=== PATIENT | male | born 1960 | race Caucasian/White ===

== ENCOUNTER 2019-01-23 06:04 | Observation (INO) ==
--- NOTE | 2019-01-04 15:08 | PAT Medication Instructions ---
Medication Instructions Date of Service January 04, 2019 Home Medications atorvastatin 20 mg PO QPM gabapentin 1,200 mg PO BID lisinopril 40 mg PO QAM naltrexone-bupropion [Contrave] 2 tab PO BID naproxen sodium 660 mg PO BID PRN tamsulosin 0.4 mg PO BID ASK your surgeon for instructions naproxen sodium 660 mg PO BID PRN STOP taking 24 hours before surgery naltrexone-bupropion [Contrave] 2 tab PO BID (instructions per anesthesiologist, Dr. Galan) DO NOT take the morning of surgery lisinopril 40 mg PO QAM Take morning of surgery With a small sip of water, OTHERWISE NOTHING TO EAT OR DRINK AFTER MIDNIGHT: gabapentin 1,200 mg PO BID tamsulosin 0.4 mg PO BID Take evening before surgery atorvastatin 20 mg PO QPM gabapentin 1,200 mg PO BID tamsulosin 0.4 mg PO BID Other Notes If you have any questions please call us at [phone] or [phone] or [phone] or [phone]
--- NOTE | 2019-01-09 09:46 | Anesthesiology Consultation ---
Date of Service January 09, 2019 Assessment & Plan (1) Encounter for pre-operative examination: Chart Review Chart Review: Acceptable Risk for Surgery and Patient seen in Pre Admission Testing Teaching & Discussion Pre-Anesthesia Teaching/Discussion Notes: Instructed NPO after midnight before surgery,except medications with 15 cc of water. Medication instructions provided according to the PAT guidelines. History Surgery Operation Date: 01/23/19 12:25 Proposed Procedures p C6-C7 Anterior Cervical Discectomy and Fusion, Spinal Cord Monitoring - Kermit Jon DO Height/Weight Height: 6 ft Weight: 149.1 kg Allergies Allergy/AdvReac Type Severity Reaction Status Date / Time No Known Allergies Allergy Verified 01/02/19 11:35 Medications Home Medications Medication Instructions Recorded Confirmed Last Taken atorvastatin 20 mg PO QPM 01/02/19 01/02/19 Unknown gabapentin 1,200 mg PO BID 01/02/19 01/02/19 Unknown lisinopril 40 mg PO QAM 01/02/19 01/02/19 Unknown naltrexone-bupropion [Contrave] 2 tab PO BID 01/02/19 01/02/19 Unknown naproxen sodium 660 mg PO BID PRN 01/02/19 01/02/19 Unknown tamsulosin 0.4 mg PO BID 01/02/19 01/02/19 Unknown Past Medical History Medical History Arthritis BPH (benign prostatic hyperplasia) Hyperlipidemia Hypertension Morbid obesity on Contrave for weight loss Exercise / Class Metabolic Activity II 4-5 Yardwork/Stairs/Walk up hill (one flight of stairs (no chest pain/no SOB)) Past Family History Family History Mother Family history of diabetes mellitus Past Surgical History Surgical History History of appendectomy History of colonoscopy History of open reduction and internal fixation (ORIF) procedure LEFT LOWER LEG History of repair of rotator cuff RIGHT Past Anesthesia History No Hx of Anesthesia Complications and No Family Hx of Anesthesia Complications History of PONV No Hx of PONV and No Hx of Motion Sickness STOP BANG Total 5 Social History Smoking Status: Never smoker Do You Dip or Chew Tobacco: No (QUIT 2010) Hx Alcohol Use: Yes Alcohol type: beer alcohol intake frequency: a few times a month Hx Substance Use: No Review of Systems Patient denies chest pain, shortness of breath, dyspnea on exertion, cough, wheezing, palpitations. Physical Exam Vital Signs VITALS BP 109/76 P 63 TEMP 98.7 SP02 96%RA RESP 16 PHYSICAL Full neck and c-spine range of motion. Full TMJ range of motion. TMD 4 finger breaths Mallampati Score 2 Dentition: missing molars/left front side, Lungs: clear throughout to auscultation Cardiac: regular rate and rhythm, no murmurs noted Spine: normal Carotid arteries: negative bruit Extremities: no edema Trimmed marin Testing Laboratory Results 01/09/19 10:21 01/09/19 10:21 PT 10.3 Seconds (9.0-12.0) 01/09/19 10:21 INR 1.0 (0.9-1.1) 01/09/19 10:21 APTT 25.1 Seconds (21.0-31.0) 01/09/19 10:21 Urine Color Yellow 01/09/19 10:21 Urine Appearance Clear (Clear) 01/09/19 10:21 Urine pH 6.0 (4.5-7.5) 01/09/19 10:21 Ur Specific [place] 1.016 (1.000-1.030) 01/09/19 10:21 Urine Protein Negative (Negative) 01/09/19 10:21 Urine Glucose (UA) Negative (Negative) 01/09/19 10:21 Urine Ketones Negative (Negative) 01/09/19 10:21 Urine Nitrite Negative (Negative) 01/09/19 10:21 Ur Leukocyte Esterase Negative (Negative) 01/09/19 10:21 Blood Type O Positive 01/09/19 10:21 Antibody Screen NEGATIVE 01/09/19 10:21 Electrocardiogram Date: 01/09/19 Findings: + SB @ (53) Chest X-Ray Date: 01/09/19 There is no airspace consolidation or pleural effusion. A 12 mm nodular density projects over the right upper lobe. Although this could be artifactual, chest CT is recommended for further assessment and to exclude underlying pulmonary nodule (report being faxed to PCP for their reference)
[2019-01-09 11:00] LABS: Appearance Urine Clear (Clear); Bilirubin Urine Negative (Negative); Blood Urine Negative (Negative); Color Urine Yellow; Glucose Urine UA Negative (Negative); Ketones Urine Negative (Negative); Leukocyte Esterase Urine Negative (Negative); Nitrite Urine Negative (Negative); Protein Urine Negative (Negative); Specific Gravity Urine 1.016 (1.000-1.030); Urobilinogen Urine Negative (Negative)
[2019-01-09 11:01] LABS: Basophils # (auto) 0.07 K/uL (0-0.2); Basophils % (auto) 0.9 %; Eosinophils # (auto) 0.16 K/uL (0-0.5); Eosinophils % (auto) 2.2 %; Hematocrit (blood only) 42.3 % (42-52); Hemoglobin 13.5 g/dL (14.0-18.0); Immature Granulocytes # (auto) 0.03 K/uL (0.00-0.02); Immature Granulocytes % (auto) 0.4 %; Lymphocytes # (auto) 1.59 K/uL (1.2-3.4); Lymphocytes % (auto) 21.4 %; Mean Corpuscular Hemoglobin 28.8 pg (25-34); Mean Corpuscular Hgb Conc 31.9 g/dL (32-36); Mean Corpuscular Volume 90.4 fL (80-100); Mean Platelet Volume 10.4 fL (7.4-10.4); Monocytes # (auto) 0.58 K/uL (0.11-0.59); Monocytes % (auto) 7.8 %; Neutrophils # (auto) 5.01 K/uL (1.4-6.5); Neutrophils % (auto) 67.3 %; Platelet Count 251 K/uL (130-400); RDW Coefficient of Variation 13.6 % (11.5-14.5); RDW Standard Deviation 45.1 fL (36.4-46.3); Red Blood Count 4.68 M/uL (4.7-6.1); White Blood Count 7.44 K/uL (4.8-10.8)
[2019-01-09 11:09] LABS: Calcium 9.2 mg/dl (8.5-10.1); Creatinine Clr Calc Pharmacy 151.1 ml/min; Est GFR (African American) 114.6; Est GFR (Non-African American) 98.9; Potassium 4.5 mmol/L (3.5-5.1)
--- NOTE | 2019-01-09 11:09 | XRay Report ---
TWO VIEW CHEST CLINICAL HISTORY: Preoperative examination. FINDINGS: PA and lateral chest radiographs are obtained. No prior studies are available for compariso n at the time of dictation. The cardiomediastinal silhouette is unremarkable. There is a 12 mm nodu lar density projecting over the right upper lobe. The lungs and pleural spaces are otherwise clear no ting elevation of right hemidiaphragm. There is no pneumothorax. The bony thorax appears intact. IMPRESSION: 1. There is no airspace consolidation or pleural effusion. 2. A 12 mm nodular density projects over the right upper lobe. Although this could be artifactual, a chest CT is recommended for further assessment and to exclude underlying pulmonary nodule. Electronically signed by: Elton Bermudez M.D. 01/09/2019 11:07 AM
[2019-01-09 11:14] LABS: Partial Thromboplastin Ratio 0.9; Partial Thromboplastin Time 25.1 Seconds (21.0-31.0); Prothrombin Time 10.3 Seconds (9.0-12.0)
[~2019-01-23 06:04] MED LIST: ACETAMINOPHEN 500 MG TAB PO SCH; CEFAZOLIN 3000MG 72.5 ML IV SCH; CeleBREX 200 MG CAP PO SCH; GABAPENTIN 600 MG DOSE PO SCH; LR 15ML/HR IV SCH; dexAMETHasone 4 MG TAB PO SCH
[2019-01-23] MEDS ORDERED: ROCURONIUM BROMIDE 10 MG/ML 5 ML VIAL ONE (06:47)
[2019-01-23] MEDS ORDERED: MIDAZOLAM HCL 1 MG/ML 2ML VIAL ONE (06:47)
[2019-01-23] MEDS ORDERED: DEXAMETHASONE SOD INJ 4 MG/ML VIAL ONE (06:47)
[2019-01-23] MEDS ORDERED: LIDOCAINE HCL 2% 2 ML VIAL/AMP(20MG/ML) INFIL ONE (06:47)
[2019-01-23] MEDS ORDERED: PROPOFOL IV EMULSION 10 MG/ML 20 ML VIAL IV ONE (06:47)
[2019-01-23] MEDS ORDERED: fentaNYL citrate 100 MCG/2 ML VIAL ONE (06:47)
[2019-01-23] MEDS ORDERED: ONDANSETRON INJ 2 MG/ML 2 ML VIAL ONE (06:47)
[2019-01-23] MEDS ORDERED: BACITRACIN INJ 50,000 UNIT VIAL ONE (07:02)
[2019-01-23] MEDS ORDERED: ONDANSETRON INJ 2 MG/ML 2 ML VIAL IV PRN ×2 (07:26→11:09)
[2019-01-23] MEDS ORDERED: ATROPINE SULFATE 0.1 MG/ML 10ML SYR IV PRN (07:26)
[2019-01-23] MEDS ORDERED: PROMETHAZINE HCL 12.5 MG in SODIUM CHLORIDE 0.9% 50 ML IV PRN ×2 (07:26→11:09)
[2019-01-23] MEDS ORDERED: ePHEDrine sulfate 50 MG/ML AMP IV PRN (07:26)
[2019-01-23] MEDS ORDERED: METOCLOPRAMIDE HCL INJ 5 MG/ML 2 ML VIAL IV PRN ×2 (07:26→11:09)
--- NOTE | 2019-01-23 07:35 | History & Physical Bridge Note ---
Date of Service January 23, 2019 History & Physical Bridge Note I have examined the patient, reviewed the History & Physical and in the interval since the performance of the History & Physical I have noted the following changes of clinical significance: no changes noted
--- NOTE | 2019-01-23 07:36 | History & Physical Report ---
Date of Service January 23, 2019 Assessment & Plan (1) Herniation of cervical intervertebral disc with radiculopathy: Anterior cervical discectomy and fusion C6-7 Present on Admission?: Yes History of Present Illness Chief Complaint: Neck and arm pain Primary Care Provider: Kosta Henley This is a 59-year-old male presents with chronic persistent neck and arm pain. Failing extensive course of nonoperative care is here for surgical intervention. Allergies Allergy/AdvReac Type Severity Reaction Status Date / Time No Known Allergies Allergy Verified 01/23/19 06:37 Home Medications Home Medications Medication Instructions Recorded Confirmed Type atorvastatin 20 mg PO QPM 01/02/19 01/23/19 History gabapentin 1,200 mg PO BID 01/02/19 01/23/19 History lisinopril 40 mg PO QAM 01/02/19 01/23/19 History naltrexone-bupropion [Contrave] 2 tab PO BID 01/02/19 01/23/19 History naproxen sodium 660 mg PO BID PRN 01/02/19 01/23/19 History tamsulosin 0.4 mg PO BID 01/02/19 01/23/19 History Past Med/Surg History Medical History Arthritis BPH (benign prostatic hyperplasia) Hyperlipidemia Hypertension Morbid obesity on Contrave for weight loss Surgical History History of appendectomy History of colonoscopy History of open reduction and internal fixation (ORIF) procedure LEFT LOWER LEG History of repair of rotator cuff RIGHT Family History Mother Family history of diabetes mellitus Social History Preferred Language: Welsh Communication Ability: Effective Silver Wrapper Required: No Beliefs That Will Affect Care: None Current Living Situation: Spouse Other Information That Helps Us Care for You: No Feels Safe at Home: Yes Safety Concerns: Feels Safe At This Time Smoking Status: Never smoker Do You Dip or Chew Tobacco: No (QUIT 2010) ; Second Hand Exposure: Yes (VERY LITTLE-SPOUSE) ; Hx Alcohol Use: Yes Alcohol type: beer Hx Substance Use: No Physical Exam Physical Exam: Patient is alert and oriented neurologically intact. Results & Data Vital Signs (Past 12 Hours) Vital Signs Temp Pulse Resp BP Pulse Ox 01/23/19 06:26 36.5 C 58 L 20 119/87 96
[2019-01-23] MEDS ORDERED: SUCCINYLCHOLINE 100MG/5ML SYR ONE (08:42)
[2019-01-23] MEDS ORDERED: ePHEDrine sulfate 50 MG/ML SYR ONE (08:42)
[2019-01-23] MEDS ORDERED: NEOSTIGMINE METHYLSULFATE 1 MG/ML 10ML VIAL ONE (08:42)
[2019-01-23] MEDS ORDERED: GLYCOPYRROLATE 0.2 MG/ML VIAL ONE (08:42)
[2019-01-23] MEDS ORDERED: FLOSEAL HEMOSTATIC MATRIX 10ML TOP ONE (09:01)
--- NOTE | 2019-01-23 09:16 | Operative Report ---
Post Operative Report Pre & Post Diagnosis Operation Date: 01/23/19 07:45 Pre-Op Diagnosis: Spinal Stenosis, Cervical Region Post-Op Diagnosis: Spinal Stenosis, Cervical Region I identified the patient and participated in the time-out.: Yes Procedure Operation Date: 01/23/19 07:45 Actual Procedures #1 anterior cervical discectomy with bilateral foraminotomies C6-7. #2 anterior cervical arthrodesis C6-7. #3 placement of Spira 10 mm cage filled with DBM at C6-7. #4 placement of 5 complete and screws across C6-7. Surgeon Kermit Jon, Arc Welder None Estimated Blood Loss 50 Findings See Below The patient is 6 foot tall weighing over 147 kg with a BMI in excess of 44. The patient's body habitus did add significant technical difficulty throughout the procedure both with patient positioning exposure and actual procedure itself. This contributed to 50% increase in operative time. Specimens None Indications This is a 59-year-old male presents with above-mentioned diagnosis after failing extensive course of nonoperative care like to undergo the above-mentioned procedure. Description of Procedure Patient was met with identified informed consent obtained. Patient was then taken to the operative suite underwent intubation placed in a supine position check stable head Briceño head are. All bony prominences well-padded eyes inspected to ensure no external pressure placed upon. This point the anterior cervical spine was prepped and draped in normal sterile fashion. Sharp dissection with the assistance of bipolar electrocautery was performed down to and exposing the anterior cervical spine at see 6 C7. A self-retaining retractor was placed. Then performed a complete discectomy of C6-7 out to the uncle vertebral joints bilaterally. I did use [place] distracting pins. I removed all posterior annular fibers longitudinal ligament bilateral foraminotomies performed. Endplates were then burred to subcortical bleeding bone and a 10 mm spiral cage filled with DBM tapped in position. Distraction apparatus was removed and a viveros plate and screws applied with the assistance of fluoroscopy. The incision was then copiously irrigated explored to ensure no damage to surrounding structures remaining bleeding. 10 round JOHNSON drain inserted. The incision was then closed with 2 Vicryl in the fashion of 4 Monocryl for final skin closure. Steri-Strip sterile dressings placed. Patient will continue PACU stable disc. Please note spinal cord monitoring was utilized that the procedure no changes noted. I attest to the content of the Intraoperative Record and any orders documented therein. Any exceptions are noted below.
[2019-01-23] MEDS: fentaNYL citrate 100 MCG/2 ML VIAL IV PRN ×4 (09:46→10:07)
[2019-01-23] MEDS: HYDROmorphone INJ 2 MG/ML SYR/VIAL IV PRN ×3 (10:13→10:23)
--- NOTE | 2019-01-23 10:32 | Fluoroscopy Report ---
INTRAOPERATIVE RADIOGRAPHS CLINICAL HISTORY: C6-C7 spinal fusion. Fluoroscopy time: 18 seconds. FINDINGS: 3 spot fluoroscopic views of the cervical spine are presented. There has been discectomy at C6-C7 with anterior fusion at this level. The orthopedic hardware appears intact. An endotracheal tu be is in place. IMPRESSION: Intraoperative images from C6 -C7 spinal fusion as above. Electronically signed by: Elton Bermudez M.D. 01/23/2019 10:30 AM
--- NOTE | 2019-01-23 10:55 | Anesthesiology Progress Note ---
Date of Service January 23, 2019 Anesthesia Post Procedure Vital Signs Vital Signs: Temp Pulse Pulse Resp BP Pulse Ox 01/23/19 10:35 36.8 C 75 14 116/74 96 01/23/19 10:25 76 12 122/90 96 01/23/19 10:15 77 12 136/81 95 01/23/19 10:05 75 14 125/86 95 01/23/19 09:55 75 20 125/84 99 01/23/19 09:45 74 20 128/92 99 01/23/19 09:35 74 14 121/85 99 01/23/19 09:25 36 C L 80 16 123/88 97 01/23/19 06:26 36.5 C 58 L 20 119/87 96 Pain Intensity Medial Neck: Pain Intensity: 4 Transfer of Care Handoff Completed per policy Notes Mental Status: alert / awake / arousable and participated in evaluation Patient Amnestic to Procedure: Yes Nausea / Vomiting: adequately controlled Pain: adequately controlled Airway Patency, RR, SpO2: stable & adequate BP & HR: stable & adequate Hydration State: stable & adequate Anesthetic Complications: no major complications apparent
[2019-01-23] MEDS ORDERED: DO NOT ADMINISTER FLU VACCINE PRN (11:09)
[2019-01-23] MEDS ORDERED: HYDROmorphone INJ 1 MG/ML SYRINGE IV PRN (11:09)
[2019-01-23] MEDS ORDERED: MAGNESIUM HYDROXIDE SUSP 30 ML UDC PO PRN (11:09)
[2019-01-23] MEDS ORDERED: ACETAMINOPHEN 500 MG TAB PO PRN (11:09)
[2019-01-23] MEDS ORDERED: DO NOT ADMINISTER PNEUMOCOCCAL VACCINE PRN (11:09)
[2019-01-23] MEDS ORDERED: FAMOTIDINE 20 MG TAB PO PRN (11:09)
[2019-01-23] MEDS ORDERED: DEXAMETHASONE SOD PHOSPHATE 8 MG in SYRINGE 0 ML IV PRN (11:09)
[2019-01-23] MEDS ORDERED: ONDANSETRON 4 MG OD TAB PO PRN (11:09)
[2019-01-23] MEDS ORDERED: ACETAMINOPHEN 1,000 MG/100 ML VIAL IV PRN (11:09)
[2019-01-23] MEDS ORDERED: LORazepam 0.5 MG/1 ML VIAL IV PRN (11:09)
[2019-01-23] MEDS ORDERED: LORazepam 0.5 MG TAB PO PRN (11:09)
[2019-01-23] MEDS ORDERED: NALOXONE HCL 0.4 MG/1 ML VIAL/CARP IV PRN (11:09)
[2019-01-23] MEDS ORDERED: HYDROmorphone INJ 0.5 MG/0.5 ML SYR IV PRN (11:09)
[2019-01-23] MEDS ORDERED: SOD PHOSPHATE/SOD BIPHOSPHATE ENEMA 132 ML BTL PR PRN (11:09)
[2019-01-23] MEDS ORDERED: ALUMINUM/MAGNESIUM SUSP 30 ML UDC PO PRN (11:09)
[2019-01-23] MEDS ORDERED: RACEPINEPHRINE 2.25% NEBU SOLN 0.5 ML VIAL INH PRN (11:09)
[2019-01-23] MEDS: SODIUM CHLORIDE 0.9% 1000ML 1,000 ML IV SCH ×2 (11:55→18:36)
[2019-01-23] MEDS: POLYETHYLENE (MIRALAX) 17 GM PACK PO SCH ×2 (11:55→18:41)
[2019-01-23] MEDS: OXYCODONE HCL IR 5 MG TAB (IMMEDIATE RELEASE) PO PRN ×3 (11:56→22:54)
[2019-01-23] MEDS: CEFAZOLIN 2000MG 2,000 MG/15 ML SYR IV SCH ×2 (13:55→22:00)
[2019-01-23] MEDS: TRAMADOL HCL 50 MG TABLET PO PRN (14:19)
[2019-01-23] MEDS ORDERED: [UNRECOGNIZED DRUG - OTHER] PO SCH (21:00)
[2019-01-23] MEDS ORDERED: ATORVASTATIN 20 MG TAB PO SCH (21:00)
[2019-01-23] MEDS ORDERED: DOCUSATE SODIUM/SENNA 50/8.6MG TAB PO SCH (21:00)
[2019-01-23] MEDS: GABAPENTIN 600 MG TAB PO SCH (22:01)
[2019-01-23] MEDS: TAMSULOSIN HCL 0.4 MG CAP PO SCH (22:01)
[2019-01-24] MEDS: POLYETHYLENE (MIRALAX) 17 GM PACK PO SCH ×2 (00:28→05:15)
[2019-01-24] MEDS: SODIUM CHLORIDE 0.9% 1000ML 1,000 ML IV SCH (00:42)
[2019-01-24] MEDS: OXYCODONE HCL IR 5 MG TAB (IMMEDIATE RELEASE) PO PRN (03:28)
--- NOTE | 2019-01-24 08:00 | Anesthesiology Progress Note ---
Date of Service January 24, 2019 Anesthesia Post Procedure Vital Signs Vital Signs: Temp Pulse Pulse Pulse Pulse Resp BP 01/24/19 07:22 36.3 C L 50 L 16 122/79 01/24/19 07:17 54 L 16 01/24/19 05:42 36.4 C L 65 16 130/76 01/24/19 03:15 36.4 C L 73 14 119/79 01/24/19 01:15 36.4 C L 75 14 115/75 01/23/19 23:18 72 16 01/23/19 23:15 36.9 C 67 16 124/82 01/23/19 22:06 65 16 115/80 01/23/19 21:00 68 16 138/82 01/23/19 19:26 123/78 01/23/19 19:00 96 H 16 01/23/19 18:39 78 16 141/89 H 01/23/19 15:26 79 14 01/23/19 15:07 36.5 C 80 18 125/84 01/23/19 13:50 79 16 134/88 01/23/19 12:39 79 16 112/71 01/23/19 11:50 36.6 C 79 16 134/79 01/23/19 11:35 71 18 01/23/19 11:20 74 16 125/72 01/23/19 10:35 36.8 C 75 14 116/74 01/23/19 10:25 76 12 122/90 01/23/19 10:15 77 12 136/81 01/23/19 10:05 75 14 125/86 01/23/19 09:55 75 20 125/84 01/23/19 09:45 74 20 128/92 01/23/19 09:35 74 14 121/85 01/23/19 09:25 36 C L 80 16 123/88 Pulse Ox 01/24/19 07:22 97 01/24/19 07:17 100 01/24/19 05:42 96 01/24/19 03:15 97 01/24/19 01:15 97 01/23/19 23:18 96 01/23/19 23:15 95 01/23/19 22:06 97 01/23/19 21:00 96 01/23/19 19:26 01/23/19 19:00 100 01/23/19 18:39 97 12/16/19 15:26 93 01/23/19 15:07 96 01/23/19 13:50 95 01/23/19 12:39 97 01/23/19 11:50 95 01/23/19 11:35 96 01/23/19 11:20 95 01/23/19 10:35 96 01/23/19 10:25 96 01/23/19 10:15 95 01/23/19 10:05 95 01/23/19 09:55 99 01/23/19 09:45 99 01/23/19 09:35 99 01/23/19 09:25 97 Pain Intensity Medial Neck: Pain Intensity: 0 Anterior Neck: Pain Intensity: 5 Notes Mental Status: alert / awake / arousable Patient Amnestic to Procedure: Yes Nausea / Vomiting: adequately controlled Pain: adequately controlled Airway Patency, RR, SpO2: stable & adequate BP & HR: stable & adequate Hydration State: stable & adequate Anesthetic Complications: no major complications apparent and Pt Satisfied with anesthetic care
[2019-01-24] MEDS ORDERED: lisinopriL 40 MG TAB PO SCH (09:00)
[2019-01-24] MEDS: GABAPENTIN 600 MG TAB PO SCH (09:40)
[2019-01-24] MEDS: TAMSULOSIN HCL 0.4 MG CAP PO SCH (09:41)
[2019-01-24] MEDS: TRAMADOL HCL 50 MG TABLET PO PRN (09:55)
--- NOTE | 2019-01-24 10:57 | Discharge Summary ---
Date of Service January 24, 2019 Admission HPI Per Admitting Provider This is a 59-year-old male presents with chronic persistent neck and arm pain. Failing extensive course of nonoperative care is here for surgical intervention. Principal Diagnosis Cervical spinal stenosis with radiculopathy Discharge Data Allergies Allergy/AdvReac Type Severity Reaction Status Date / Time No Known Allergies Allergy Verified 01/23/19 06:37 Procedures Performed Operation Date: 01/23/19 07:45 Actual Procedures p C6-C7 Anterior Cervical Discectomy and Fusion, Spinal Cord Monitoring(Not Applicable) - Kermit Jon DO Ordered Studies 01/23/19 07:45 FL cervical 2-3V Routine FL fluoroscopy <1hr Routine Hospital Course (1) Herniation of cervical intervertebral disc with radiculopathy: Patient underwent anterior cervical discectomy and fusion tolerated so was taken to orthopedic for postoperative. Postop day #1 arm symptoms were improved. Is swallowing well. No hoarseness. Excellent strength testing. JOHNSON drain decreasing probably. Subsequently discharged home. Discharge orders and instructions from the chart for further review. Total Time Total Time Spent Total Time Spent (In Minutes): 20 minutes Discharge Plan Discharge Items Patient Disposition: Home - Self-Care Reason For Visit: Spinal Stenosis, Cervical Region Discharge Diagnosis: Cervical spinal stenosis with radiculopathy Activity: Per Instructions section Non-emergency contact: Primary Care Provider Call non-emergency contact if: you have any medication questions Follow-up/Referrals: Kosta Henley [Primary Care Provider] - Diet: Regular Addtl Attending Provider Instructions: ACTIVITY RECOMMENDATIONS: SELF CARE INSTRUCTIONS AFTER CERVICAL FUSIONS 1. No smoking. Smoking drastically decreases the chance of a solid fusion. 2. No bending, lifting more than 5 pounds, or twisting (roll like a log when turning in bed). 3. You may shower 3 days after surgery. Thoroughly dry wound. Do not soak in the tub. 4. Cervical collar: Must be worn at all times including sleeping. You may remove the brace only to bath, eat and if you are sitting in a recliner. 5. Please walk as much as you can for exercise. Gradually increase the distance that you walk as your endurance increases. SPECIAL CARE INSTRUCTIONS: VERY IMPORTANT TO READ AND REVIEW A. Do not take any anti-inflammatory medications (i.e. Indocin, Advil, Aspirin, Naprosyn, Aleve, Motrin, etc.) as these may inhibit the chance of a solid fusion. Tylenol is okay to take. B. Your surgical incision has been closed with a cosmetic suture under the skin that will dissolve in about 6 weeks. In 14 days, you can use a pair of clean scissors and cut the suture that is left outside of the skin at the ends of your incision. C. Complications are uncommon, but please contact us if you have any signs or symptoms of: 1. wound infection (fever higher than 102.5 degrees F, redness, separation of wound, drainage, or increasing pain from the incision) 2. blood clots in legs (pain, swelling, redness and warmth in legs) 3. urinary tract infection (fever higher than 102.5 degrees, burning upon urination or increased frequency of urination) 4. nerve problems (inability to walk on your toes or heels, numbness, loss of bowel or bladder control) 5. any other symptoms that concern you. D. Please call the office at if you have any concerns or questions about your operation or recovery. MANAGING PAIN AFTER SPINAL SURGERY 1. Narcotic medication is intended for short-term use and will be provided for surgical pain. Surgical pain usually lasts for a period of 4-6 weeks. Narcotic medication includes Percocet, Vicodin, Darvocet, Tylenol #3 or Lortab. 2. Longer-term pain is more appropriately treated with non-narcotic medication such as Tylenol ES. 3. Muscle spasm is not appropriately treated with narcotics. Muscle relaxers such as Soma, Flexeril or Skelaxin can be used along with Tylenol ES. 4. Remember that we all live with some "aches and pains". This is not unusual or uncommon after an injury or as we get older. 5. We will provide appropriate medication within the normal guidelines of their prescribed use. We will also be very cautious and aware of potential abuse and extended duration of patients' medication needs. 6. Please allow 2-3 days to process refills. Prescriptions will not be mailed but must be picked up at the office. FOLLOW UP VISIT: Keep your scheduled follow-up appointment. Any questions, please call the office at . Pending Studies at Discharge: No Stand-Alone Forms: [facility] [x+1], Smoking Cessation Medications and DC Order Prescriptions: New tramadol 50 mg tablet 50 mg PO Q6H PRN (Reason: pain, moderate) Qty: 10 RF: 0 oxycodone 5 mg tablet 5 mg PO Q6H PRN (Reason: pain, severe) Qty: 20 RF: 0 Continued gabapentin 600 mg Tablet 1,200 mg PO BID RF: 0 atorvastatin 20 mg Tablet 20 mg PO QPM RF: 0 tamsulosin 0.4 mg Capsule 0.4 mg PO BID RF: 0 lisinopril 40 mg Tablet 40 mg PO QAM RF: 0 Contrave 8-90 mg Tablet Extended Release 2 tab PO BID RF: 0 Discontinued naproxen sodium 220 mg Capsule 660 mg PO BID PRN (Reason: Pain) RF: 0 Discharge Orders: Discharge Order (Routine); Ordered 01/24/19 Ordered By: Kermit Jon Admission Data Admit Date/Time: 01/23/19 09:42 Attending Provider: Kermit Jon Admit Provider: Kermit Jon Primary Care Provider: Kosta Henley Other Interventions: Discharge Summary Assessment (RN) Last Done: 01/24/19 10:53
[2019-01-25] MEDS ORDERED: bisacodyL 10 MG SUPP PR PRN (09:17)
== END 2019-01-24 11:34 | disposition home or self-care (01) ==
LOC: ASU 06:04 → 3E 06:04

== ENCOUNTER 2019-01-28 00:27 | Observation (INO) ==
[2019-01-28] MEDS ORDERED: ONDANSETRON INJ 2 MG/ML 2 ML VIAL IV STA (01:00)
[2019-01-28] MEDS ORDERED: fentaNYL citrate 100 MCG/2 ML VIAL IV STA (01:00)
[2019-01-28 01:12] LABS: Basophils # (auto) 0.04 K/uL (0-0.2); Basophils % (auto) 0.4 %; Eosinophils # (auto) 0.11 K/uL (0-0.5); Eosinophils % (auto) 1.1 %; Hematocrit (blood only) 42.7 % (42-52); Hemoglobin 14.2 g/dL (14.0-18.0); Immature Granulocytes # (auto) 0.04 K/uL (0.00-0.02); Immature Granulocytes % (auto) 0.4 %; Lymphocytes # (auto) 1.19 K/uL (1.2-3.4); Lymphocytes % (auto) 11.4 %; Mean Corpuscular Hemoglobin 29.2 pg (25-34); Mean Corpuscular Hgb Conc 33.3 g/dL (32-36); Mean Corpuscular Volume 87.7 fL (80-100); Mean Platelet Volume 10.3 fL (7.4-10.4); Monocytes # (auto) 0.67 K/uL (0.11-0.59); Monocytes % (auto) 6.4 %; Neutrophils # (auto) 8.38 K/uL (1.4-6.5); Neutrophils % (auto) 80.3 %; Platelet Count 274 K/uL (130-400); RDW Standard Deviation 41.7 fL (36.4-46.3); Red Blood Count 4.87 M/uL (4.7-6.1); White Blood Count 10.43 K/uL (4.8-10.8)
[2019-01-28 01:26] LABS: D Dimer 1510 ug/L FEU (0-500)
[2019-01-28 01:30] LABS: Alanine Aminotransferase 24 U/L (12-78); Aspartate Aminotransferase 12 U/L (15-37); BUN Creatinine Ratio 11.1 (10-20); Blood Urea Nitrogen 9 mg/dl (7-18); Calcium 9.7 mg/dl (8.5-10.1); Carbon Dioxide 27 mmol/L (21-32); Chloride 109 mmol/L (98-107); Creatinine Clr Calc Pharmacy 145.2 ml/min; Est GFR (African American) 113.2; Est GFR (Non-African American) 97.7; Glucose 122 mg/dl (70-99); Lipase 108 U/L (73-393); Potassium 3.6 mmol/L (3.5-5.1); Sodium 140 mmol/L (136-145)
[2019-01-28 01:35] LABS: Albumin Globulin Ratio 0.9 (0.9-2); Alkaline Phosphatase 91 U/L (45-117); Bilirubin,Total 0.7 mg/dl (0.2-1); Globulin 3.4 gm/dl (2.5-4.0); Total Protein 6.4 gm/dl (6.4-8.2); Troponin I < 0.015 ng/ml (0-0.045)
[2019-01-28] MEDS ORDERED: OPTIRAY 320 125ml IV PRN (01:40)
[2019-01-28 02:49] LABS: Appearance Urine Clear (Clear); Bilirubin Urine Negative (Negative); Blood Urine Negative (Negative); Color Urine Yellow; Glucose Urine UA Negative (Negative); Ketones Urine Negative (Negative); Leukocyte Esterase Urine Negative (Negative); Nitrite Urine Negative (Negative); Protein Urine Negative (Negative); Specific Gravity Urine > 1.045 (1.000-1.030); Urobilinogen Urine Negative (Negative); pH Urine >= 9.0 (4.5-7.5)
[2019-01-28] MEDS ORDERED: ONDANSETRON INJ 2 MG/ML 2 ML VIAL ONE (03:18)
--- NOTE | 2019-01-28 04:49 | History & Physical Report ---
Date of Service January 28, 2019 Assessment & Plan (1) Nausea: Patient with nausea, unrelieved by Zofran. Labs and imaging largely unremarkable. EKG with some T wave inversions in anterior leads. Patient with no complaints of chest pain. Patient feels mildly constipated and bloated. Na usea possibly secondary to constipation and decreased gut motility in setting of opiate use and recent surgery. Doubt cardiac etiology Observation to medical floor Zofran 4 mg IV every 6 hours as needed Phenergan 12.5 mg IV every 6 hours as needed IV fluids with normal saline at 125 mL/h x 2 L Check magnesium and phosphate and replete as needed -Bowel regimen with Colace, Dulcolax and MiraLAX as needed Trend troponin every 8 hours x2 sets Patient had anterior cervical decompression and fusion of C6-C7 performed on 01/[address] Jon. Procedure well-tolerated. No comp locations identified. Continue tramadol and oxycodone as needed for pain control Bowel regimen as above Present on Admission?: Yes (2) Right upper quadrant abdominal pain: Patient with right upper quadrant pain on arrival. Now resolved. LFTs are within normal limits. Exam benign. CT with incidental finding of liver cysts and mild hepatic enlargement. Repeat LFTs in morning Pain and nausea control as above Present on Admission?: Yes (3) BPH (benign prostatic hyperplasia): Chronic. Stable. Continue Flomax daily Present on Admission?: Yes (4) Hypertension: Blood pressure slightly elevated at 140/83. Patient in pain and with nausea Continue lisinopril Continue to monitor blood pressure Present on Admission?: Yes (5) Hyperlipidemia: Chronic. Continue atorvastatin F/E/Nnormal saline 125 mL/h, monitor electrolytes and replete as needed, n.p.o. for now ProphylaxisLovenox for DVT prophylaxis Codefull Dispositionobservation to medical floor Present on Admission?: Yes History of Present Illness Chief Complaint: Intractable nausea Primary Care Provider: Kosta Zeng Lily is a 59-year-old male with history of hypertension, hyperlipidemia, BPH, arthritis status post C6-C7 ACDF performed on 01/23/[address] Jon. Surgery was well tolerated. No complications identified. Patient was discharged home in stable condition on 01/24/2019. He states overall he has been doing okay. His pain is well controlled. He only took 1 oxycodone and 1 tramadol yesterday. He does report some constipation and mild abdominal bloating, last bowel movement was 12 p.m. He presents today with severe nausea and abdominal pain. He also had a mild headache. He was administered 2 doses of Zofran with persistent symptoms. He reports his pain to be approximately 4-5 out of 10 at present. No additional complaints at this time ER course: Zofran 4 mg IV x2 doses, fentanyl 100 mcg IV Allergies Allergy/AdvReac Type Severity Reaction Status Date / Time No Known Allergies Allergy Verified 01/28/19 02:21 Home Medications Home Medications Medication Instructions Recorded Confirmed Type Contrave 2 tab PO BID 01/02/19 01/28/19 History atorvastatin 20 mg PO QPM 01/02/19 01/28/19 History gabapentin 1,200 mg PO BID 01/02/19 01/28/19 History lisinopril 40 mg PO QAM 01/02/19 01/28/19 History tamsulosin 0.4 mg PO BID 01/02/19 01/28/19 History oxycodone 5 mg PO Q6H PRN #20 tab 01/23/19 01/28/19 Rx tramadol 50 mg PO Q6H PRN #10 tab 01/23/19 01/28/19 Rx Past Med/Surg History Medical History Arthritis BPH (benign prostatic hyperplasia) Hyperlipidemia Hypertension Morbid obesity on Contrave for weight loss Surgical History History of appendectomy History of colonoscopy History of open reduction and internal fixation (ORIF) procedure LEFT LOWER LEG History of repair of rotator cuff RIGHT Family History Mother Family history of diabetes mellitus Social History Preferred Language: Maltese Communication Ability: Effective 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 Beliefs That Will Affect Care: None marital status: Current Living Situation: Spouse Feels Safe at Home: Yes Smoking Status: Never smoker Second Hand Exposure: Yes (VERY LITTLE-SPOUSE) ; Hx Alcohol Use: Yes Alcohol type: beer Hx Substance Use: No Review of Systems Review of Systems: All systems reviewed & are unremarkable except as noted in HPI & below + Nausea/vomiting + Chills + Abdominal pain/bloating + Headache Physical Exam Physical Exam: General: patient appears uncomfortable, NAD, non-toxic in appearance, AA&O x 4 Skin: warm, dry, no rashes or lesions, anterior cervical surgical site with Steri-Strips in place. Wound well approximated with no bleeding/drainage/erythema HEENT: NC/AT, PERRL, EOMI, anicteric sclera, conjunctiva without injection, external ear normal to inspection and nontender, nares patent, slightly dry mucus membranes, dentition intact, no oropharyngeal lesions, neck supple, trachea midline, no LAD, no thyromegaly, no JVD Heart: +S1/S2, regular, no m/r/g Lungs: equal air entry bilaterally, no rales/rhonchi/wheezes Abd: +BS mildly hypoactive, soft, mildly tender in the right upper quadrant with no rebound/guarding/peritoneal signs, no masses/organomegaly/ascites Ext: warm, 2+ pulses in UE/LE bilaterally, no clubbing/cyanosis or edema, LINDA stockings in place Neuro: nonfocal, patient AA&O x 4, speech intact, no facial droop, moving all extremities on command with equal strength 5/5 Results & Data Vital Signs (Past 12 Hours) Vital Signs Temp Pulse Pulse Resp BP BP Pulse Ox 01/28/19 03:21 78 16 140/83 97 01/28/19 02:21 85 14 136/89 95 01/28/19 01:27 76 16 143/93 H 92 01/28/19 01:08 97 01/28/19 00:31 36.3 C L 55 L 24 181/103 H 100 Laboratory Results Lab Results 01/28/19 01/28/19 01/28/19 Range/Units 01:01 01:01 01:01 WBC 10.43 (4.8-10.8) K/uL RBC 4.87 (4.7-6.1) M/uL Hgb 14.2 (14.0-18.0) g/dL Hct 42.7 (42-52) % MCV 87.7 (80-100) fL MCH 29.2 (25-34) pg MCHC 33.3 (32-36) g/dL RDW Std Deviation 41.7 (36.4-46.3) fL RDW Coeff of Ave 13.0 (11.5-14.5) % Plt Count 274 (130-400) K/uL MPV 10.3 (7.4-10.4) fL Immature Gran % (Auto) 0.4 % Neut % (Auto) 80.3 % Lymph % (Auto) 11.4 % [place] % (Auto) 6.4 % Eos % (Auto) 1.1 % Baso % (Auto) 0.4 % Immature Gran # (Auto) 0.04 H (0.00-0.02) K/uL Neut # (Auto) 8.38 H (1.4-6.5) K/uL Lymph # (Auto) 1.19 L (1.2-3.4) K/uL [place] # (Auto) 0.67 H (0.11-0.59) K/uL Eos # (Auto) 0.11 (0-0.5) K/uL Baso # (Auto) 0.04 (0-0.2) K/uL D-Dimer 1510 H* (0-500) ug/L FEU Sodium 140 (136-145) mmol/L Potassium 3.6 (3.5-5.1) mmol/L Chloride 109 H (98-107) mmol/L Carbon Dioxide 27 (21-32) mmol/L Anion Gap 4.0 (3-11) BUN 9 (7-18) mg/dl Creatinine 0.83 (0.6-1.4) mg/dl Est Cr Clr Drug Dosing 145.2 ml/min Est GFR ( Amer) 113.2 Est GFR (Non-Af Amer) 97.7 BUN/Creatinine Ratio 11.1 (10-20) Glucose 122 H (70-99) mg/dl Calcium 9.7 (8.5-10.1) mg/dl Total Bilirubin 0.7 (0.2-1) mg/dl AST 12 L (15-37) U/L ALT 24 (12-78) U/L Alkaline Phosphatase 91 (45-117) U/L Troponin I < 0.015 (0-0.045) ng/ml Total Protein 6.4 (6.4-8.2) gm/dl Albumin 3.0 L (3.4-5.0) gm/dl Globulin 3.4 (2.5-4.0) gm/dl Albumin/Globulin Ratio 0.9 (0.9-2) Lipase 108 (73-393) U/L Urine Color Urine Appearance (Clear) Urine pH (4.5-7.5) Ur Specific [place] (1.000-1.030) Urine Protein (Negative) Urine Glucose (UA) (Negative) Urine Ketones (Negative) Urine Blood (Negative) Urine Nitrite (Negative) Urine Bilirubin (Negative) Urine Urobilinogen (Negative) Ur Leukocyte Esterase (Negative) 01/28/19 Range/Units 02:40 WBC (4.8-10.8) K/uL RBC (4.7-6.1) M/uL Hgb (14.0-18.0) g/dL Hct (42-52) % MCV (80-100) fL MCH (25-34) pg MCHC (32-36) g/dL RDW Std Deviation (36.4-46.3) fL RDW Coeff of Ave (11.5-14.5) % Plt Count (130-400) K/uL MPV (7.4-10.4) fL Immature Gran % (Auto) % Neut % (Auto) % Lymph % (Auto) % [place] % (Auto) % Eos % (Auto) % Baso % (Auto) % Immature Gran # (Auto) (0.00-0.02) K/uL Neut # (Auto) (1.4-6.5) K/uL Lymph # (Auto) (1.2-3.4) K/uL [place] # (Auto) (0.11-0.59) K/uL Eos # (Auto) (0-0.5) K/uL Baso # (Auto) (0-0.2) K/uL D-Dimer (0-500) ug/L FEU Sodium (136-145) mmol/L Potassium (3.5-5.1) mmol/L Chloride (98-107) mmol/L Carbon Dioxide (21-32) mmol/L Anion Gap (3-11) BUN (7-18) mg/dl Creatinine (0.6-1.4) mg/dl Est Cr Clr Drug Dosing ml/min Est GFR ( Amer) Est GFR (Non-Af Amer) BUN/Creatinine Ratio (10-20) Glucose (70-99) mg/dl Calcium (8.5-10.1) mg/dl Total Bilirubin (0.2-1) mg/dl AST (15-37) U/L ALT (12-78) U/L Alkaline Phosphatase (45-117) U/L Troponin I (0-0.045) ng/ml Total Protein (6.4-8.2) gm/dl Albumin (3.4-5.0) gm/dl Globulin (2.5-4.0) gm/dl Albumin/Globulin Ratio (0.9-2) Lipase (73-393) U/L Urine Color Yellow Urine Appearance Clear (Clear) Urine pH >= 9.0 H (4.5-7.5) Ur Specific [place] > 1.045 H (1.000-1.030) Urine Protein Negative (Negative) Urine Glucose (UA) Negative (Negative) Urine Ketones Negative (Negative) Urine Blood Negative (Negative) Urine Nitrite Negative (Negative) Urine Bilirubin Negative (Negative) Urine Urobilinogen Negative (Negative) Ur Leukocyte Esterase Negative (Negative) Diagnostic Findings Right upper quadrant ultrasoundPer stat rad: There are 1.1 in 1 cm simple cyst in the left lobe of the liver. There is a 1.5 cm simple cyst in the right liver lobe. No solid mass lesion is seen. Liver is mildly enlarged measuring 18.2 cm. The portal vein is patent with normal directional flow. The gallbladder is partially distended. There is a single 3 mm polyp or stone in the dependent portion of the gallbladder. No wall thickening or pericholecystic fluid is seen. The common bile duct is nondilated measuring 3 mm. The right kidney appears unremarkable. No hydronephrosis CT chest with contrast: Per stat readthe ascending aorta is mildly dilated measuring 4.3 cm. No dissection is seen. The descending aorta is normal. The pulmonary arterial tree is well opacified with contrast. There is no evidence of pulmonary embolism. No mediastinal or axillary lymphadenopathy or mass is seen. Incidental note is made of several small cysts in the liver. The lungs are clear. No infiltrate or consolidation is seen. There is no pneumothorax or pleural effusion. Multilevel osteophytes throughout the thoracic spine. No fracture or bone lesion ECG Additional Comments: Study shows sinus bradycardia at 50 bpm, left axis dev iation, IL = 176, QRS = 96, QTc = 418, T wave inversions present in anterior leads Code Status & VTE Plan Code Status Full code VTE Prophylaxis Plan VTE Prophylaxis will be ordered: Yes PG Care Time/CCT Total # of Minutes Spent Total Time Spent with Patient: Total time spent is greater than 50% in coordination of care (as documented) at patient's floor/unit and/or counseling patient: (1) BPH (benign prostatic hyperplasia) Lower urinary tract symptom presence: symptoms absent Qualified Code(s): N40.0 - Benign prostatic hyperplasia without lower urinary tract symptoms (2) Hypertension Hypertension type: essential hypertension Qualified Code(s): I10 - Essential (primary) hypertension (3) Hyperlipidemia Hyperlipidemia type: unspecified Qualified Code(s): E78.5 - Hyperlipidemia, unspecified
[2019-01-28] MEDS ORDERED: bisacodyL 10 MG SUPP PR PRN (05:51)
[2019-01-28] MEDS ORDERED: ACETAMINOPHEN 325 MG TAB PO PRN (05:51)
[2019-01-28] MEDS ORDERED: PROMETHAZINE HCL 12.5 MG in SODIUM CHLORIDE 0.9% 50 ML IV PRN (05:51)
[2019-01-28] MEDS ORDERED: POLYETHYLENE (MIRALAX) 17 GM PACK PO PRN (05:51)
[2019-01-28] MEDS ORDERED: DOCUSATE SODIUM 100 MG CAP PO PRN (05:51)
[2019-01-28] MEDS ORDERED: OXYCODONE HCL IR 5 MG TAB (IMMEDIATE RELEASE) PO PRN (05:53)
--- NOTE | 2019-01-28 06:11 | Ultrasound Report ---
US gallbladder CLINICAL HISTORY: 59 years-old Male presenting with ruq pain and vomiting. TECHNIQUE: Real-time grayscale and limited color Doppler ultrasound imaging of the abdomen limited to the right upper quadrant was performed. COMPARISON: None. FINDINGS: Pancreas: Visualized portions of the pancreatic head and body normal. Liver: Mildly hyperechogenic parenchyma, although the right hemidiaphragm remains visible, likely ind icating mild steatosis. The liver measures 18.2 cm in maximal sagittal dimension. Hepatic cysts measu ring up to 1.5 cm. Main portal vein patent with normal directional flow. Biliary: No intrahepatic biliary ductal dilatation. Common bile duct measures up to 3 mm in diameter. Gallbladder: Gallbladder sludge. Nonmobile punctate hyperechogenic foci along the gallbladder wall ma y represent cholesterol polyp. No evidence of gallstones, gallbladder wall thickening, gallbladder di stention, or pericholecystic fluid or inflammatory change. Right kidney: Normal in appearance without evidence of hydronephrosis. Ascites: None. Other: None. IMPRESSION: 1. Gallbladder sludge. No cholelithiasis or biliary ductal dilatation. No convincing evidence of cho lecystitis. 2. Suspected mild hepatic steatosis and mild hepatomegaly. Correlate with liver function tests to ex clude steatohepatitis as a cause for abdominal pain. ACT 112: Negative or not required by law. Electronically signed by: Gabino Eastman M.D. 01/28/2019 6:10 AM
[2019-01-28] MEDS: ONDANSETRON INJ 2 MG/ML 2 ML VIAL IV SCH ×4 (06:19→23:57)
[2019-01-28] MEDS: SODIUM CHLORIDE 0.9% 1000ML 1,000 ML IV SCH ×2 (06:19→13:50)
--- NOTE | 2019-01-28 06:44 | CT Scan Report ---
CT angio chest PE protocol CLINICAL HISTORY: 59 years-old Male presenting with shortness of breath, nausea and vomiting, recent surgery, clinical concern for pulmonary embolus. TECHNIQUE: Multidetector CT angiography of the chest was performed after administration of intravenou s contrast. 3-D volumetric and/or maximum intensity projection (MIP) images were subsequently reconst ructed for review. IV contrast: 120 mL of Optiray 320. One or more dose lowering techniques were used consistent with the principles of ALARA (as low as reasonably achievable), including automatic expos ure control, mA or kV adjustment to individual patient size, and/or use of iterative reconstruction. COMPARISON: None. CT DOSE (mGy.cm): The estimated cumulative dose is 941.15 mGy.cm. FINDINGS: Field Technical Assistant topogram: Unremarkable. Pulmonary vasculature: The study is suboptimal for the assessment of the pulmonary vascular tree secondary to timing of the contrast bolus. No filling defect within the pulmonary arteries to suggest embolus. Main pulmonary ar anitra is not enlarged. No flattening of the interventricular septum. No intracardiac filling defect. N o reflux of contrast into the hepatic veins. Remaining chest: Soft tissues: Normal thyroid and thoracic inlet. No axillary, supraclavicular, mediastinal, or hilar lymphadenopathy. Atherosclerosis of the aortic arch. Allowing for the significant degree of cardiac m otion artifact, no aneurysm of the ascending or descending thoracic aorta. No dissection. Calcificati on of the aortic valve. Borderline cardiac enlargement. No pericardial or pleural effusion. Hepatic c ysts suspected. Nodular thickening of the left adrenal gland likely indicating underlying adenomas. 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 Lungs and airways: No pneumothorax. Central airways patent. Pulmonary arteries are not significantly enlarged relative to adjacent bronchi. No interlobular septal thickening. No focal infiltrate or nodu le. Musculoskeletal: Degenerative changes of the spine. IMPRESSION: 1. No evidence of pulmonary embolus. No acute intrathoracic pathology. ACT 112: Negative or not required by law. Electronically signed by: Gabino Eastman M.D. 01/28/2019 6:42 AM
[2019-01-28 07:09] LABS: Magnesium 1.8 mg/dl (1.8-2.4); Phosphorus 3.9 mg/dl (2.5-4.9); Troponin I < 0.015 ng/ml (0-0.045)
--- NOTE | 2019-01-28 07:41 | Emergency Department Note ---
Entered by Nelda Alberts acting as a scribe for Esha Galdamez DO History of Present Illness General Chief complaint: Illness Stated complaint: SICK FEELING, DIZZY, SOB Time Seen by Provider: 01/28/19 00:37 Source: patient and family () History of Present Illness Onset (ago): day(s) 1 Location: abdomen (central ) Pain Consistency: + other (worsening ) Maximum Pain Intensity: 5 Associated symptoms: + headaches, + nausea/vomiting, + shortness of breath and + other (positive dizziness; positive now resolved constipation); no fever/chills Treatments prior to arrival: other (oxycodone; tramadol ) The patient is a 59 year old male who presents to the Emergency Room with complaints of worsening central abdominal pain that began several hours prior to arrival. The patient reports that he has been feeling nauseous all day, but states that he only vomited upon arrival to the ED. The patient reports dizziness during this time, and states that he currently has a headache. Per the patient's , the patient has been short of breath during this time. The patient denies fevers and chills. The patient reports eating and drinking normally over the past several days. He states that he had neck surgery on Wednesday, 4 days ago, for placement of a spacer. The patient states that he was discharged on Wednesday and began to have some constipation the next day which was relieved with laxatives. The patient states that he has been taking oxycodone and tramadol for his pain, but states that he only took one of each today. The patient reports a history of appendectomy. Home Medications Home Medications Medication Instructions Recorded Confirmed Type Contrave 2 tab PO BID 01/02/19 01/28/19 History atorvastatin 20 mg PO QPM 01/02/19 01/28/19 History gabapentin 1,200 mg PO BID 01/02/19 01/28/19 History lisinopril 40 mg PO QAM 01/02/19 01/28/19 History tamsulosin 0.4 mg PO BID 01/02/19 01/28/19 History oxycodone 5 mg PO Q6H PRN #20 tab 01/23/19 01/28/19 Rx tramadol 50 mg PO Q6H PRN #10 tab 01/23/19 01/28/19 Rx Allergies Allergy/AdvReac Type Severity Reaction Status Date / Time No Known Allergies Allergy Verified 01/28/19 02:21 Past Med/Surg History Medical History Arthritis BPH (benign prostatic hyperplasia) Hyperlipidemia Hypertension Morbid obesity on Contrave for weight loss Surgical History History of appendectomy History of colonoscopy History of open reduction and internal fixation (ORIF) procedure LEFT LOWER LEG History of repair of rotator cuff RIGHT Family History Mother Family history of diabetes mellitus Social History Preferred Language: Georgian Communication Ability: Effective 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 and A total of 10 systems reviewed and were otherwise negative Physical Exam Vital Signs Vital Signs - 24 hr 01/28/19 00:31 01/28/19 01:00 01/28/19 01:08 Temperature 36.3 C L Temperature Source Oral Pulse Rate 55 L 90 Pulse Rate [Apical] Pulse Rate from SpO2 Sensor Pulse Rhythm Regular Pulse Strength Normal Respiratory Rate 24 22 Respiratory Effort / Characteristics Spontaneous Labored Respiratory Pattern Regular Blood Pressure 181/103 H 149/99 H Blood Pressure [Left Arm] Blood Pressure Mean 129 113 Blood Pressure Mean [Left Arm] Blood Pressure Position Sitting Pulse Oximetry 100 97 Oxygen Delivery Method Room Air Room Air Sepsis Recent Fever Within 48 Hours No Sepsis Action Taken by Nursing No Action Required 01/28/19 01:27 01/28/19 01:28 01/28/19 01:30 Temperature Temperature Source Pulse Rate 68 76 Pulse Rate [Apical] 76 Pulse Rate from SpO2 Sensor 74 77 Pulse Rhythm Pulse Strength Respiratory Rate 16 22 20 Respiratory Effort / Characteristics Respiratory Pattern Blood Pressure 142/101 H 143/93 H Blood Pressure [Left Arm] 143/93 H Blood Pressure Mean 128 103 Blood Pressure Mean [Left Arm] 109 Blood Pressure Position Pulse Oximetry 92 94 92 Oxygen Delivery Method Room Air Sepsis Recent Fever Within 48 Hours Sepsis Action Taken by Nursing 01/28/19 02:21 01/28/19 03:00 01/28/19 03:21 Temperature Temperature Source Pulse Rate 82 86 Pulse Rate [Apical] 85 78 Pulse Rate from SpO2 Sensor 83 87 Pulse Rhythm Pulse Strength Respiratory Rate 20 22 16 Respiratory Effort / Characteristics Respiratory Pattern Blood Pressure 136/89 140/83 Blood Pressure [Left Arm] 136/89 140/83 Blood Pressure Mean 105 98 Blood Pressure Mean [Left Arm] 104 102 Blood Pressure Position Pulse Oximetry 96 94 97 Oxygen Delivery Method Room Air Room Air Sepsis Recent Fever Within 48 Hours Sepsis Action Taken by Nursing 01/28/19 04:00 Temperature Temperature Source Pulse Rate 70 Pulse Rate [Apical] Pulse Rate from SpO2 Sensor 72 Pulse Rhythm Pulse Strength Respiratory Rate 23 Respiratory Effort / Characteristics Respiratory Pattern Blood Pressure 145/97 H Blood Pressure [Left Arm] Blood Pressure Mean 118 Blood Pressure Mean [Left Arm] Blood Pressure Position Pulse Oximetry 98 Oxygen Delivery Method Sepsis Recent Fever Within 48 Hours Sepsis Action Taken by Nursing HEENT: Head - normocephalic and atraumatic Pupils are equal, round, and reactive to light. Extraocular eye muscles are intact, and sclera are anicteric. Nose - moist nasal mucosa without discharge. Mouth - moist buccal mucosa. Oropharynx is nonerythematous and there is no tonsillar exudate or edema noted. Neck: Supple; no JVD, nuchal rigidity, cervical lymphadenopathy, or auscultated bruits. Incision to the anterior neck appears well-healing. Steri strips in place Heart: Heart sounds distant secondary to body habitus. Regular rate and rhythm. There is a normal S1 and S2 with no murmurs, clicks, or gallops appreciated. Lungs: Diminished lung sounds in all lung ellington. Clear to auscultation bilaterally with no wheezes, rales, or rhonchi. Abdomen: Exquisite tenderness to palpation of the right upper quadrant. Soft, nondistended, with good bowel sounds. There are no palpable pulsatile masses or hepatosplenomegaly. There is no guarding, rigidity, or rebound noted. Extremities: No evidence of cyanosis, clubbing, or edema. There are easily palpable peripheral pulses. Skin: warm and dry with good turgor and no rashes. Course Course 0051: Past medical records reviewed. The patient was evaluated in room A12B. A complete history and physical exam was performed. An IV lock was initiated and labs were drawn as above. A twelve-lead EKG was obtained. An order was placed for continuous cardiac monitoring. The patient was in a normal sinus rhythm at 88. 0101: Ordered Fentanyl 100mcg IV and Zofran 4mg IV. 0138: I went to check on the patient, however he is over in ultrasound. Patient had an elevated d-dimer and will go straight from ultrasound to CT scan to rule out PE. 0316: Upon reevaluation, the patient states that his symptoms are beginning to return, stating that he feels nauseous again. The patient states that his n ausea, headache, and abdominal pain had resolved but are beginning to return. 0319: Ordered Zofran 4mg IV. 0353: Upon reevaluation, the patient is still not feeling well and his nausea is persistent. 0404: I discussed the case with Dr. Padron[facility] Hospitalist who accepts the patient for further evaluation. Administered Medications Acetaminophen (Tylenol) 650 mg PO Q4H PRN PRN Reason: pain/fever Stop: 02/27/19 05:50 Last Admin: 01/28/19 20:39 Dose: 650 mg Documented by: [id number] Atorvastatin Calcium (Lipitor) 20 mg PO QPM TAMI Stop: 02/27/19 20:59 Last Admin: 01/28/19 20:29 Dose: 20 mg Documented by: [id number] Docusate Sodium (Colace) 100 mg PO BID TAMI Stop: 02/27/19 20:59 Last Admin: 01/28/19 22:03 Dose: 100 mg Documented by: [id number] Enoxaparin Sodium (Lovenox) 40 mg SQ QAM TAMI Stop: 02/27/19 08:59 Last Admin: 01/28/19 08:29 Dose: 40 mg Documented by: [id number] Gabapentin (Neurontin) 1,200 mg PO BID TAMI Stop: 02/27/19 08:59 Last Admin: 01/28/19 20:29 Dose: 1,200 mg Documented by: [id number] Admin: 01/28/19 08:29 Dose: 1,200 mg Documented by: [id number] Promethazine HCl 12.5 mg/ (Sodium Chloride) 50.5 mls @ 202 mls/hr IV Q6H PRN PRN Reason: Nausea And Vomiting Stop: 02/27/19 05:50 Last Infusion: 01/28/19 13:49 Dose: 0 mls/hr Documented by: [id number] Admin: 01/28/19 13:24 Dose: 202 mls/hr Documented by: [id number] Ioversol (Optiray 320 125ml) 120 ml IV ONCE PRN PRN Reason: Interaction Checking Stop: 02/01/19 01:39 Last Admin: 01/28/19 01:41 Dose: 120 ml Documented by: [id number] Lisinopril (Zestril) 40 mg PO QAM [facility] Stop: 02/27/19 08:59 Last Admin: 01/28/19 08:29 Dose: 40 mg Documented by: [id number] Miscellaneous (Order Awaiting Action) 1 ea N/A QS [facility] Stop: 02/27/19 07:59 Last Admin: 01/28/19 15:22 Dose: Not Given Documented by: [id number] Admin: 01/28/19 08:28 Dose: Not Given Documented by: [id number] Ondansetron HCl (Zofran) 4 mg IV Q6H [facility] Stop: 02/27/19 05:50 Last Admin: 01/28/19 23:57 Dose: 4 mg Documented by: [id number] Admin: 01/28/19 17:33 Dose: 4 mg Documented by: [id number] Admin: 01/28/19 12:08 Dose: 4 mg Documented by: [id number] Admin: 01/28/19 06:19 Dose: 4 mg Documented by: [id number] Sennosides (Senokot) 8.6 mg PO HS [facility] Stop: 02/27/19 20:59 Last Admin: 01/28/19 22:03 Dose: 8.6 mg Documented by: [id number] Tamsulosin HCl (Flomax) 0.4 mg PO BID [facility] Stop: 02/27/19 08:59 Last Admin: 01/28/19 20:28 Dose: 0.4 mg Documented by: [id number] Admin: 01/28/19 08:29 Dose: 0.4 mg Documented by: [id number] Discontinued Medications Fentanyl Citrate (Fentanyl Citrate) 100 mcg IV NOW [facility] Stop: 01/28/19 01:01 Last Admin: 01/28/19 01:27 Dose: 100 mcg Documented by: [id number] Sodium Chloride (Nss 1000ml) 1,000 mls @ 125 mls/hr IV .Q8H [facility] Stop: 01/28/19 21:50 Last Infusion: 01/28/19 22:05 Dose: 0 mls/hr Documented by: [id number] Admin: 01/28/19 13:50 Dose: 125 mls/hr Documented by: [id number] Infusion: 01/28/19 13:47 Dose: 0 mls/hr Documented by: [id number] Admin: 01/28/19 06:19 Dose: 125 mls/hr Documented by: [id number] Potassium Chloride/Sodium Chloride (Normal Saline W/20 Meq Kcl) 20 meq in 1,000 mls @ 100 mls/hr IV .Q10H [facility] Stop: 02/27/19 13:14 Last Admin: 01/28/19 14:40 Dose: Not Given Documented by: [id number] Ondansetron HCl (Zofran) 4 mg IV NOW STA Stop: 01/28/19 01:01 Last Admin: 01/28/19 01:27 Dose: 4 mg Documented by: [id number] Ondansetron HCl (Zofran) Confirm Administered Dose 4 mg .ROUTE .STK-MED ONE Stop: 01/28/19 03:19 Last Admin: 01/28/19 03:19 Dose: 4 mg Documented by: [id number] Medical Decision Making Differential Diagnosis Differential diagnoses include medication side effects, cholecystitis, PE, pneumonia, small bowel obstruction, and others were considered. Medical Records Attestation: I reviewed the patient's medical records. Home Medications Current Medication List: was personally reviewed by me Laboratory Data Attestation: I reviewed the patient's lab results. Result diagrams: 01/28/19 01:01 01/28/19 01:01 Lab Results 01/28/19 01/28/19 01/28/19 Range/Units 01:01 01:01 01:01 WBC 10.43 (4.8-10.8) K/uL RBC 4.87 (4.7-6.1) M/uL Hgb 14.2 (14.0-18.0) g/dL Hct 42.7 (42-52) % MCV 87.7 (80-100) fL MCH 29.2 (25-34) pg MCHC 33.3 (32-36) g/dL RDW Std Deviation 41.7 (36.4-46.3) fL RDW Coeff of Ave 13.0 (11.5-14.5) % Plt Count 274 (130-400) K/uL MPV 10.3 (7.4-10.4) fL Immature Gran % (Auto) 0.4 % Neut % (Auto) 80.3 % Lymph % (Auto) 11.4 % Major % (Auto) 6.4 % Eos % (Auto) 1.1 % Baso % (Auto) 0.4 % Immature Gran # (Auto) 0.04 H (0.00-0.02) K/uL Neut # (Auto) 8.38 H (1.4-6.5) K/uL Lymph # (Auto) 1.19 L (1.2-3.4) K/uL Major # (Auto) 0.67 H (0.11-0.59) K/uL Eos # (Auto) 0.11 (0-0.5) K/uL Baso # (Auto) 0.04 (0-0.2) K/uL D-Dimer 1510 H* (0-500) ug/L FEU Sodium 140 (136-145) mmol/L Potassium 3.6 (3.5-5.1) mmol/L Chloride 109 H (98-107) mmol/L Carbon Dioxide 27 (21-32) mmol/L Anion Gap 4.0 (3-11) BUN 9 (7-18) mg/dl Creatinine 0.83 (0.6-1.4) mg/dl Est Cr Clr Drug Dosing 145.2 ml/min Est GFR ( Amer) 113.2 Est GFR (Non-Af Amer) 97.7 BUN/Creatinine Ratio 11.1 (10-20) Glucose 122 H (70-99) mg/dl Calcium 9.7 (8.5-10.1) mg/dl Total Bilirubin 0.7 (0.2-1) mg/dl AST 12 L (15-37) U/L ALT 24 (12-78) U/L Alkaline Phosphatase 91 (45-117) U/L Troponin I < 0.015 (0-0.045) ng/ml Total Protein 6.4 (6.4-8.2) gm/dl Albumin 3.0 L (3.4-5.0) gm/dl Globulin 3.4 (2.5-4.0) gm/dl Albumin/Globulin Ratio 0.9 (0.9-2) Lipase 108 (73-393) U/L Urine Color Urine Appearance (Clear) Urine pH (4.5-7.5) Ur Specific [place] (1.000-1.030) Urine Protein (Negative) Urine Glucose (UA) (Negative) Urine Ketones (Negative) Urine Blood (Negative) Urine Nitrite (Negative) Urine Bilirubin (Negative) Urine Urobilinogen (Negative) Ur Leukocyte Esterase (Negative) 01/28/19 Range/Units 02:40 WBC (4.8-10.8) K/uL RBC (4.7-6.1) M/uL Hgb (14.0-18.0) g/dL Hct (42-52) % MCV (80-100) fL MCH (25-34) pg MCHC (32-36) g/dL RDW Std Deviation (36.4-46.3) fL RDW Coeff of Ave (11.5-14.5) % Plt Count (130-400) K/uL MPV (7.4-10.4) fL Immature Gran % (Auto) % Neut % (Auto) % Lymph % (Auto) % Major % (Auto) % Eos % (Auto) % Baso % (Auto) % Immature Gran # (Auto) (0.00-0.02) K/uL Neut # (Auto) (1.4-6.5) K/uL Lymph # (Auto) (1.2-3.4) K/uL Major # (Auto) (0.11-0.59) K/uL Eos # (Auto) (0-0.5) K/uL Baso # (Auto) (0-0.2) K/uL D-Dimer (0-500) ug/L FEU Sodium (136-145) mmol/L Potassium (3.5-5.1) mmol/L Chloride (98-107) mmol/L Carbon Dioxide (21-32) mmol/L Anion Gap (3-11) BUN (7-18) mg/dl Creatinine (0.6-1.4) mg/dl Est Cr Clr Drug Dosing ml/min Est GFR ( Amer) Est GFR (Non-Af Amer) BUN/Creatinine Ratio (10-20) Glucose (70-99) mg/dl Calcium (8.5-10.1) mg/dl Total Bilirubin (0.2-1) mg/dl AST (15-37) U/L ALT (12-78) U/L Alkaline Phosphatase (45-117) U/L Troponin I (0-0.045) ng/ml Total Protein (6.4-8.2) gm/dl Albumin (3.4-5.0) gm/dl Globulin (2.5-4.0) gm/dl Albumin/Globulin Ratio (0.9-2) Lipase (73-393) U/L Urine Color Yellow Urine Appearance Clear (Clear) Urine pH >= 9.0 H (4.5-7.5) Ur Specific [place] > 1.045 H (1.000-1.030) Urine Protein Negative (Negative) Urine Glucose (UA) Negative (Negative) Urine Ketones Negative (Negative) Urine Blood Negative (Negative) Urine Nitrite Negative (Negative) Urine Bilirubin Negative (Negative) Urine Urobilinogen Negative (Negative) Ur Leukocyte Esterase Negative (Negative) Imaging Data Radiologist's Impression: Radiology results as stated below per my review and the radiologist's interpretation: US RUQ: There are 1.1 and 1 cm simple cysts in the left lobe of the liver. There is a 1.5 cm simple cyst in the right liver lobe. No solid mass lesion is seen. The liver is mildly enlarged measuring 18.2 cm. The portal vein is patent with normal direction of flow. The gallbladder is partially distended. There is a single 3 mm polyp or stone in the dependent portion of the gallbladder. No wall thickening or pericholecystic fluid is seen. The common bile duct is nondilated measuring 3 mm. The right kidney appears unremarkable. No hydronephrosis. Radiologist: Onel Padron MD Study ready at 02:16 and initial results transmitted at 02:29 CT CHEST With Contrast: The ascending aorta is mildly dilated measuring 4.3 cm. No dissection is seen. The descending aorta is normal. The pulmonary arterial tree is well-opacified with contrast. There is no evidence of pulmonary embolism. No mediastinal or axillary lymphadenopathy or mass is seen. Incidental note is made of several small cysts in the liver. The lungs are clear. No infiltrate or consolidation is seen. There is no pneumothorax or pleural effusion. Multilevel osteophytosis throughout the thoracic spine. No fracture or bone lesion. Radiologist: Onel Padron MD Study ready at 02:24 and initial results transmitted at 02:34 ECG Data Attestation: I personally reviewed and interpreted this ECG as follows: Indication: + SOB/dyspnea Rate (beats per minute): 58 Rhythm: + sinus bradycardia ECG ST segments: no ST depression and no ST elevation ECG Findings: no PACs and no PVCs Blood Pressure Blood Pressure Findings: Elevated blood pressure Blood Pressure Disposition: elevated BP felt to be situational MDM Narrative The patient is a 59 year old male who presents to the Emergency Room with complaints of worsening central abdominal pain that began several hours prior to arrival. The patient recently underwent surgery of the cervical spine with Dr. Jon. He has been feeling okay since then until today when he developed right upper quadrant abdominal pain and some shortness of breath. On presentation, the patient's vital signs were stable. He received IV Zofran for his nausea and some fentanyl for his right upper quadrant abdominal pain and headache. This did seem to relieve his symptoms for a short period of time. The patient went for an ultrasound which revealed no evidence of acute cholecystitis. He had an elevated d-dimer and went for CT scan of the chest to rule out PE. This was negative. Despite IV analgesia and IV antiemetics, the patient's right upper quadrant abdominal pain, headache and nausea persisted. The patient described not feeling well enough to go home. I discussed the case with the [facility] Hospitalist and they will evaluate for further management. Impression & Plan Shortness of breath, Right upper quadrant abdominal pain, Nausea, Dizziness Discharge Plan Visit Data *Final* Discharge Date/Time: 01/28/19 05:23 Chief Complaint: Illness Stated Complaint: SICK FEELING, DIZZY, SOB ED Provider: Esha Galdamez Discharge Problem: Shortness of breath, Right upper quadrant abdominal pain, Nausea, Dizziness Patient Disposition: Admitted As Inpatient Discharge Instructions Interventions: ED Discharge Assessment Last Done: 01/28/19 05:23 The scribe's documentation has been prepared under my direction and personally reviewed by me in its entirety. I confirm that the note above accurately reflects all work, treatment, procedures, and medical decision making performed by me.
[2019-01-28] MEDS: [UNRECOGNIZED DRUG - REMARK] SCH ×2 (08:28→15:22)
[2019-01-28] MEDS: ENOXAPARIN INJ 40 MG/0.4 ML SYR SQ SCH (08:29)
[2019-01-28] MEDS: TAMSULOSIN HCL 0.4 MG CAP PO SCH ×2 (08:29→20:28)
[2019-01-28] MEDS: GABAPENTIN 600 MG TAB PO SCH ×2 (08:29→20:29)
[2019-01-28] MEDS: lisinopriL 40 MG TAB PO SCH (08:29)
--- NOTE | 2019-01-28 13:02 | History & Physical Bridge Note ---
Date of Service January 28, 2019 History & Physical Bridge Note I have examined the patient, reviewed the History & Physical and in the interval since the performance of the History & Physical I have noted the following changes of clinical significance: I saw the patient around 1400 today and he was still complaining of significant nausea despite receiving Zofran not that long ago. He reported that he felt bloated in the abdomen but no further abdominal pain. He had not passed any gas he thinks since yesterday. He had not had a bowel movement in 2 days, and reports no bowel movement before that time for 3 or 4 days since before his neck surgery. He also reported he had a severe headache last night when he was in the emergency room which is now improved and down to a mild headache. He was having chills at home. They also report that their son who came to visit last week had a fairly significant gastroenteritis with similar symptoms. He denied chest pain or shortness of breath. He had not vomited again since the ER, but had no appetite. He is making urine. Vitals reviewed Gen: AAOx3, NAD, obese HEENT: Anicteric sclerae, EOMI, PERRLA, NCAT CV: RRR no mgr nl S1S2 Pulm: CTAB no wcr Abd: +BS soft NT mild distention no masses or hernias Ext: No edema, 2+ DP pulses Skin: No rashes, warm/dry, anterior right neck with dressing in place over surgical wound Neuro: Full strength throughout, cranial nerves II through XII intact 59-year-old male here with intractable nausea and vomiting, headache, and abdominal pain after recent anterior cervical discectomy and fusion. Imaging and labs reviewed ECG with nonspecific T wave inversions anteriorly, repeat ECG today is with nonspecific changes but improved from previous Troponin negative x2 Has a benign abdomen at this time on exam Most likely either viral gastroenteritis versus nausea and vomiting from constipation which could be opioid induced -KUB with constipation CT head negative Continue Phenergan and Zofran for nausea, clear liquids as tolerated -Continue IV fluids Bisacodyl suppository as needed -Add on daily MiraLAX, senna and docusate scheduled to work on bowel regimen Check labs in the morning -No focal neuro deficits in the setting of vomiting with recent neck surgery
[2019-01-28] MEDS ORDERED: NSS + 20MEQ KCL 20 MEQ/1,000 ML BAG IV SCH (14:00)
--- NOTE | 2019-01-28 14:46 | CT Scan Report ---
CT head/brain wo con CLINICAL HISTORY: 59 years-old Male presenting with severe headache,vomiting. TECHNIQUE: Multidetector CT imaging of the head was performed without the use of intravenous contrast . IV contrast: None. One or more dose lowering techniques were used consistent with the principles of ALARA (as low as reasonably achievable), including automatic exposure control, mA or kV adjustment t o individual patient size, and/or use of iterative reconstruction. COMPARISON: None. CT DOSE (mGy.cm): The estimated cumulative dose is 537.48 mGy.cm. FINDINGS: Clinical Laboratory Director topogram: Unremarkable. Ventricles and sulci normal in size. No hemorrhage. Brain parenchyma normal in appearance with preser jaqueline sanchez-white differentiation. No acute territorial infarct. No mass effect or midline shift. No ext ra-axial fluid collection. Paranasal sinuses and mastoid air cells clear. Calvarium intact. IMPRESSION: 1. No acute intracranial abnormality. ACT 112: Negative or not required by law. Electronically signed by: Gabino Eastman M.D. 01/28/2019 2:44 PM
--- NOTE | 2019-01-28 15:50 | XRay Report ---
XR KUB/Abdomen 1 view CLINICAL HISTORY: 59 years-old Male presenting with vomiting, r/o obstruction. TECHNIQUE: Single supine view of the abdomen was obtained. COMPARISON: Right upper quadrant ultrasound from earlier today. FINDINGS: Moderate stool burden in the right colon. Nonobstructive bowel gas pattern allowing for the paucity s mall bowel gas. No gross pneumoperitoneum. Allowing for bowel gas and stool, no calcifications to suggest nephrolithiasis. Degenerative changes of the spine. Lung bases clear. IMPRESSION: 1. Paucity of small bowel gas limits evaluation for obstruction. Allowing for this, no convincing ev idence of bowel obstruction on the current radiograph. ACT 112: Negative or not required by law. Electronically signed by: Gabino Eastman M.D. 01/28/2019 3:49 PM
[2019-01-28] MEDS ORDERED: ATORVASTATIN 20 MG TAB PO SCH (21:00)
[2019-01-28] MEDS ORDERED: SENNA 8.6 MG TAB PO SCH (21:00)
[2019-01-28] MEDS: DOCUSATE SODIUM 100 MG CAP PO SCH (22:03)
[2019-01-29] MEDS: ONDANSETRON INJ 2 MG/ML 2 ML VIAL IV SCH ×2 (05:44→12:11)
[2019-01-29] MEDS: TRAMADOL HCL 50 MG TABLET PO PRN ×2 (05:56→12:11)
[2019-01-29 06:56] LABS: Basophils # (auto) 0.04 K/uL (0-0.2); Basophils % (auto) 0.4 %; Eosinophils # (auto) 0.21 K/uL (0-0.5); Eosinophils % (auto) 2.1 %; Hematocrit (blood only) 42.9 % (42-52); Hemoglobin 13.8 g/dL (14.0-18.0); Immature Granulocytes # (auto) 0.04 K/uL (0.00-0.02); Immature Granulocytes % (auto) 0.4 %; Lymphocytes % (auto) 12.2 %; Mean Corpuscular Hemoglobin 29.4 pg (25-34); Mean Corpuscular Hgb Conc 32.2 g/dL (32-36); Mean Corpuscular Volume 91.3 fL (80-100); Mean Platelet Volume 9.8 fL (7.4-10.4); Monocytes # (auto) 0.89 K/uL (0.11-0.59); Monocytes % (auto) 9.1 %; Neutrophils # (auto) 7.45 K/uL (1.4-6.5); Neutrophils % (auto) 75.8 %; Platelet Count 257 K/uL (130-400); RDW Coefficient of Variation 13.1 % (11.5-14.5); RDW Standard Deviation 43.9 fL (36.4-46.3); White Blood Count 9.83 K/uL (4.8-10.8)
[2019-01-29 07:34] LABS: Albumin Level 2.9 gm/dl (3.4-5.0); BUN Creatinine Ratio 8.4 (10-20); Bilirubin Direct 0.1 mg/dl (0-0.2); Creatinine Clr Calc Pharmacy 133.4 ml/min; Est GFR (Non-African American) 93.2; Potassium 4.1 mmol/L (3.5-5.1)
[2019-01-29 07:36] LABS: Bilirubin,Total 0.7 mg/dl (0.2-1); Total Protein 6.2 gm/dl (6.4-8.2)
[2019-01-29] MEDS: [UNRECOGNIZED DRUG - REMARK] SCH ×2 (08:48→15:58)
[2019-01-29] MEDS: TAMSULOSIN HCL 0.4 MG CAP PO SCH (08:48)
[2019-01-29] MEDS: DOCUSATE SODIUM 100 MG CAP PO SCH (08:48)
[2019-01-29] MEDS: lisinopriL 40 MG TAB PO SCH (08:48)
[2019-01-29] MEDS: GABAPENTIN 600 MG TAB PO SCH (08:48)
[2019-01-29] MEDS: ENOXAPARIN INJ 40 MG/0.4 ML SYR SQ SCH (08:49)
[2019-01-29] MEDS ORDERED: POLYETHYLENE (MIRALAX) 17 GM PACK PO SCH (09:00)
[2019-01-29] MEDS ORDERED: ONDANSETRON INJ 2 MG/ML 2 ML VIAL IV PRN (13:00)
[2019-01-29] MEDS ORDERED: DiphenhydrAMINE HCL 50 MG/ML VIAL IV STA (13:05)
[2019-01-29] MEDS ORDERED: METOCLOPRAMIDE HCL INJ 5 MG/ML 2 ML VIAL IV ONE (13:05)
--- NOTE | 2019-01-29 15:00 | XRay Report ---
XR cervical spine 2 or 3V CLINICAL HISTORY: recent ACDF,neck pain, headache COMPARISON STUDY: Cervical spine fluoroscopic images January 23, 2019. FINDINGS: Straightening of the normal cervical lordosis is noted. Patient is status post C6-C7 anteri or discectomy and fusion. Hardware is intact. Anterior osteophytes versus is noted within the mid to lower cervical spine. No unexpected radiopaque foreign bodies are noted. There is no fracture. Mild p revertebral soft tissue swelling of the lower cervical spine is noted. This is probably postsurgical. IMPRESSION: 1. Status post C6-C7 anterior discectomy and fusion. Mild prevertebral soft tissue swelling. This is nonspecific but may be postsurgical. 2. No cervical spine fracture. ACT 112: Negative or not required by law. Electronically signed by: Amauri Schmitz M.D. 01/29/2019 2:58 PM
[2019-01-29] MEDS ORDERED: METOCLOPRAMIDE HCL 5 MG TABLET PO ONE (18:24)
--- NOTE | 2019-01-29 18:37 | Discharge Summary ---
Date of Service January 29, 2019 Admission HPI Per Admitting Provider Karri Bautista is a 59-year-old male with history of hypertension, hyperlipidemia, BPH, arthritis status post C6-C7 ACDF performed on 01/23/[address] Jon. Surgery was well tolerated. No complications identified. Patient was discharged home in stable condition on 01/24/2019. He states overall he has been doing okay. His pain is well controlled. He only took 1 oxycodone and 1 tramadol yesterday. He does report some constipation and mild abdominal bloating, last bowel movement was / p.m. He presents today with severe nausea and abdominal pain. He also had a mild headache. He was administered 2 doses of Zofran with persistent symptoms. He reports his pain to be approximately 4-5 out of 10 at present. No additional complaints at this time ER course: Zofran 4 mg IV x2 doses, fentanyl 100 mcg IV Principal Diagnosis Migraine headache, intractable nausea/vomiting Discharge Exam Constitutional WD/WN, vitals as above Eyes PERRL, conjunctivae normal, anicteric sclerae ENMT external ear and nose normal, oropharynx normal Neck trachea midline, no thyromegaly + abnormal visual inspection (anterior neck with incision with steri strips,healing) and neck nontender (no TTP over posterior neck) Respiratory normal respiratory effort, lungs clear to auscultation Cardiovascular RRR, no murmur, no edema Chest (Breasts) Chest: normal inspection of chest Gastrointestinal (Abdomen) normal bowel sounds, soft, nontender, no hepatosplenomegaly Musculoskeletal Extremities: extremities normal to inspection; no cyanosis and no clubbing Skin no rashes, warm and dry Neurologic PERRL, EOMI, accommodation nl, no face palsy, no dysarthria CN's II-XI intact bilaterally, deep tendon reflexes 2+ bilaterally (in upper and lower extremities), moves all extremities and awake; no focal motor deficits Motor/Sensory: no sensory deficit (intact to lt touch throuhgout UEs bilat) Psychiatric A+Ox3, euthymic affect Lymphatic no lymphedema Discharge Data Allergies Allergy/AdvReac Type Severity Reaction Status Date / Time No Known Allergies Allergy Verified 01/28/19 02:21 Consultations 01/28/19 04:06 ED Decision to Admit Stat Ordered Studies 01/28/19 01:00 US gallbladder Urgent 01/28/19 01:37 CT angio chest PE protocol Urgent 01/28/19 13:01 CT head/brain wo con Urgent KUB Cervical spine xray series Hospital Course (1) Nausea: 59-year-old male here with intractable nausea and vomiting, headache, and abdominal pain after recent anterior cervical discectomy and fusion. Imaging and labs reviewed ECG with nonspecific T wave inversions anteriorly, repeat ECG the next day is with nonspecific changes but improved from previous Troponin negative x2, no chest pain at all Had a benign abdomen throughout hospital course, KUB negative for obstruction. He was very constipated and finally moved his bowels the day of discharge, nausea was resolved, was tolerating regular diet prior to discharge. His nausea/vomiting may have been either secondary to viral gastroenteritis versus nausea and vomiting from opioid-induced constipation vs migraine headache. His headache actually developed first and reports he has never been diagnosed with migraines but has had similar bad headaches in the past. N/V may have been associated with migraine. Headache and nausea improved with reglan and benadryl for abortive therapy-can continue taking this as needed as an outpt. Neck pain from vomiting in setting of recent surgery-checked cspine xrays and were without acute issue. Discussed case with Dr. Jon. CT head negative -received IV fluids Bowel regimen was provided with Bisacodyl suppository, daily MiraLAX, senna and docusate bid-continue these at home -No focal neuro deficits in the setting of vomiting with recent neck surgery (2) Headache: as above, resolved at time of dc (3) Right upper quadrant abdominal pain: Patient with right upper quadrant pain on arrival. Now resolved. LFTs are within normal limits. Exam benign. CT with incidental finding of liver cysts and mild hepatic enlargement. (4) BPH (benign prostatic hyperplasia): Chronic. Stable. Continue Flomax daily (5) Hypertension: Blood pressure stable Continue lisinopril Continue to monitor blood pressure (6) Hyperlipidemia: Chronic. Continue atorvastatin Dispo-stable for dc to home, much improved Total Time Total Time Spent Total Time Spent (In Minutes): 35 min Total Time Includes: Examination of the Patient, Discharge Planning, Medication Reconciliation and Communication With Other Providers (Dr. Jon) Discharge Plan Discharge Items Patient Disposition: Home - Self-Care Reason For Visit: INTRACTABLE NAUSEA Discharge Diagnosis: Headache, nausea/vomiting, constipation Condition on Discharge: Fair Goals: You have been hospitalized for an acute medical problem. During your stay at [facility], we have made an effort to correct the problem that brought you to the hospital while keeping you as comfortable as possible. Medications were used to bring your condition under control and your discharge instructions will include directions for any medications you should take after leaving the hospital. Please make sure you see your Primary Care Provider as part of your follow up plan. Activity: Resume your previous activity Non-emergency contact: Primary Care Provider and Surgeon Call non-emergency contact if: you have any medication questions, your symptoms worsen, your pain is not controlled, your pain is worsening, your pain is unusual for you, your pain is concerning for you, you have a fever, your temperature is above 101, your wound has increased redness, your wound has increased drainage and your wound pain has increased Follow-up/Referrals: Kosta Henley [Primary Care Provider] - (Please call for a hospital follow up appointment within 1 week.) Diet: Heart Healthy Addtl Attending Provider Instructions: You were admitted for headache, nausea/vomiting, and constipation with abdominal pain. Your headache, nausea, and vomiting may be due to a migraine. The constipation is also likely contributing to your nausea. You had a CT scan of the head, chest, abdomen, pelvis, and an abdominal ultrasound. There were only minor abnormalities such as fatty liver (recommend weight loss for this), and incidental finding of some nodularity of the left adrenal gland. It is likely the left adrenal gland nodularity is a benign (non-cancerous) growth that is not concerning, HOWEVER, please have your primary care physician follow up on this in the future. Xrays of your neck showed your hardware from the surgery was in good position. Please continue to take Reglan (metoclopramide) and Benadryl together to help with your headache, the nausea, and continue Miralax, senna, and docusate for the constipation. Follow up with your PCP within 1 week after discharge. If you have a return of severe headache, nausea or vomiting, severe/worsening neck pain, any weakness or numbness or shooting pains down your arms, please report back to the hospital as soon as possible. Pending Studies at Discharge: No Stand-Alone Forms: My [facility] Medications and DC Order Prescriptions: New sennosides [Senokot] 8.6 mg Tablet 8.6 mg PO HS Qty: 30 RF: 0 polyethylene glycol 3350 [Miralax] 17 gram Powder In Packet 17 g PO DAILY Qty: 30 RF: 0 docusate sodium 100 mg Capsule 100 mg PO BID Qty: 60 RF: 0 metoclopramide HCl [Reglan] 5 mg tablet 5 mg PO Q6H PRN (Reason: nausea or headache) Qty: 10 RF: 0 diphenhydramine HCl [Benadryl] 25 mg capsule 25 mg PO Q6H PRN (Reason: headache) Qty: 20 RF: 0 Continued gabapentin 600 mg Tablet 1,200 mg PO BID RF: 0 atorvastatin 20 mg Tablet 20 mg PO QPM RF: 0 tamsulosin 0.4 mg Capsule 0.4 mg PO BID RF: 0 lisinopril 40 mg Tablet 40 mg PO QAM RF: 0 Contrave 8-90 mg Tablet Extended Release 2 tab PO BID RF: 0 tramadol 50 mg tablet 50 mg PO Q6H PRN (Reason: pain, moderate) Qty: 10 RF: 0 oxycodone 5 mg tablet 5 mg PO Q6H PRN (Reason: pain, severe) Qty: 20 RF: 0 Discharge Orders: Discharge Order (Routine); Ordered 01/29/19 Ordered By: Moni Bain Admission Data Admit Date/Time: 01/28/19 04:30 Attending Provider: Moni Bain Admit Provider: Merlene Padron Primary Care Provider: Kosta Henley Other Providers: Merlene Padron Other Interventions: Discharge Summary Assessment (RN) Last Done: 01/29/19 18:34 DC Date/Time DO NOT enter until pt leaves facility: 01/29/19 18:59
== END 2019-01-29 18:59 | disposition home or self-care (01) ==
LOC: 2W 00:27 → ED 00:27 → SUATTDRO 04:30 → 2W 05:23